=== PATIENT | female | born 1970 | race American Indian/Alaskan Native ===

== ENCOUNTER 2021-09-21 08:43 | Emergency (ER) | payer MEDICAID ==
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
[2021-09-21] MEDS ORDERED: CYCLOBENZAPRINE 10 MG TAB PO ONE (10:58)
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
[2021-09-21 13:09] VITALS: BP 121/73
== END 2021-09-21 13:11 | disposition home or self-care (01) ==
LOC: ED 08:43
DX: S13.4XXA Sprain of ligaments of cervical spine, initial encounter (principal); V89.2XXA Person injured in unspecified motor-vehicle accident, traffic, initial encounter; Y93.89 Activity, other specified; Y92.89 Other specified places as the place of occurrence of the external cause; Y99.8 Other external cause status; Z88.6 Allergy status to analgesic agent
CPT/HCPCS: 70450; 72125; 99284